=== PATIENT | female | born 1965 | race Caucasian/White ===

== ENCOUNTER 2024-08-27 16:36 | Emergency (ER) | payer BC, SELFPAY ==
[2024-08-27 16:38] VITALS: BP 202/103
--- NOTE | 2024-08-27 16:44 | ED.GENMED ---
ED Provider Triage
<Tasha Lewis PA-C - Last Filed: 08/27/24 16:49>
-
Patient seen by provider in Triage?: Seen in Triage
Attestation: A medical screening examination has been initiated by a qualified medical provider. Based on the assessment performed at this time, it has been determined that an emergent medical condition may exist and the patient has been informed
that further medical evaluation and possible additional diagnostic testing may be needed.
HPI: 58yoF here with n/v/d x 2 days. Has been able to keep down liquids but unable to tolerate solids. No fevers or abdominal pain. No sick contact, recent travel, or recent abx. Hx of Crohn's disease. Colonoscopy 2 years ago showed remission, no
longer on any medication for IBD.
GENERAL: Alert , in no apparent distress
EYE: No visual abnormalities.
NECK: Trachea midline
ENT: No visible abnormalities.
LUNGS: No acute respiratory distress
NEUROLOGICAL: Alert and oriented
SKIN: Skin intact. No visible changes.
MUSCULOSKELETAL: Moving extremities normally
PSYCH: Normal and appropriate interaction.
This is a medical evaluation conducted in person to initiate diagnostic evaluation and provide initial therapeutics. Please see further documentation by the treating clinician.
Abdominal labs, magnesium, COVID/flu testing ordered. ODT Zofran for nausea.
History of Present Illness
<Tasha Lewis PA-C - Last Filed: 08/27/24 16:49>
General
Chief Complaint: Abdominal Symptoms
Time Seen by Provider: 08/27/24 18:02
<Luis Thomas Jr., PA-C - Last Filed: 08/27/24 19:59>
General
Source: patient, spouse and family
Exam Limitations: none
Nursing documentation reviewed up to this point in time: agreed with
History of Present Illness
History of Present Illness:
58-year-old female past medical history of hypertension previous Crohn's, CKD presenting to the emergency department today with concerns of 2 days of nausea vomiting diarrhea. Multiple episodes per day over the past few days. Denies any chest pain
shortness of breath fevers.
Review of Systems
<Luis Thomas Jr., PA-C - Last Filed: 08/27/24 19:59>
Review of Systems
Allergies reviewed?: Yes
All Other Systems: ROS reviewed and negative except as documented in HPI and ROS
Phy Exam
<Luis Thomas Jr., PA-C - Last Filed: 08/27/24 19:59>
Physical Exam
Physical Exam:
GENERAL: Alert , in no apparent distress
EYE: pupils equal and reactive
NECK: Supple, no significant adenopathy.
ENT: o/p clr, mmm.
CARDIAC: Regular rate and rhythm .
LUNGS: Clear breath sounds bilaterally, no acute respiratory distress, no wheezes/rales/rhonchi
ABDOMEN: Soft, without focal tenderness, no r/g, no cvat
NEUROLOGICAL: Alert and oriented, no focal neuro deficits
SKIN: Warm and dry, skin intact.
MUSCULOSKELETAL: No edema, well perfused.
PSYCH: Normal and appropriate interaction.
Course
<Tasha Lewis PA-C - Last Filed: 08/27/24 16:49>
Orders/Labs/Results
Orders:
Orders
08/27/24 16:48
Ondansetron Orally Disint [Zofran Odt (Orally Disintegrating)] 4 mg PO NOW STA
08/27/24 16:52
COVID-19 Antigen Urgent
Source: Nasal Swab
Comprehensive Metabolic Panel Urgent
Lipase Urgent
Magnesium Urgent
Influenza A+B Rapid Molecular Urgent
MARA Source: Nasal Swab
Specimen Description:
08/27/24 18:18
Famotidine [Pepcid] 20 mg IV NOW STA
Ondansetron Injectable [Zofran] 4 mg IV NOW STA
08/27/24 18:19
0.9% Sodium Chloride 1000 ml [Nss] 1,000 ml IV BOLUS
08/27/24 18:26
Complete Blood Count/With Diff Urgent
Abnormal Lab Results
08/27/24 08/27/24
16:52 18:26
Absolute Neuts (auto) 6.9 H 10^3/uL
(1.4-6.5)
Absolute Monos (auto) 0.7 H 10^3/uL
(0.1-0.6)
Lymphocytes % 20.0 L %
(20.5-51.1)
BUN 25 H mg/dl
(7-17)
Creatinine 1.3 H mg/dL
(0.6-1.0)
Glucose 101 H mg/dl
(70-99)
AST 37 H U/L
(14-36)
Total Protein 8.6 H g/dl
(6.3-8.2)
08/27/24 18:26
08/27/24 16:52
Vital Signs
Initial and Last Documented VS:
Initial Vital Signs
Temp Pulse Resp BP Pulse Ox
97.6 F 80 16 202/103 98
08/27/24 16:38 08/27/24 16:38 08/27/24 16:38 08/27/24 16:38 08/27/24 16:38
Last Documented Vital Signs
Temp Pulse Resp BP Pulse Ox
97.6 F 53 18 153/84 99
08/27/24 16:38 08/27/24 19:34 08/27/24 19:34 08/27/24 19:19 08/27/24 19:34
<Luis Thomas Jr., PA-C - Last Filed: 08/27/24 19:59>
Orders/Labs/Results
Orders:
Orders
08/27/24 16:48
Ondansetron Orally Disint [Zofran Odt (Orally Disintegrating)] 4 mg PO NOW STA
08/27/24 16:52
COVID-19 Antigen Urgent
Source: Nasal Swab
Comprehensive Metabolic Panel Urgent
Lipase Urgent
Magnesium Urgent
Influenza A+B Rapid Molecular Urgent
MARA Source: Nasal Swab
Specimen Description:
08/27/24 18:18
Famotidine [Pepcid] 20 mg IV NOW STA
Ondansetron Injectable [Zofran] 4 mg IV NOW STA
08/27/24 18:19
0.9% Sodium Chloride 1000 ml [Nss] 1,000 ml IV BOLUS
08/27/24 18:26
Complete Blood Count/With Diff Urgent
Abnormal Lab Results
08/27/24 08/27/24
16:52 18:26
Absolute Neuts (auto) 6.9 H 10^3/uL
(1.4-6.5)
Absolute Monos (auto) 0.7 H 10^3/uL
(0.1-0.6)
Lymphocytes % 20.0 L %
(20.5-51.1)
BUN 25 H mg/dl
(7-17)
Creatinine 1.3 H mg/dL
(0.6-1.0)
Glucose 101 H mg/dl
(70-99)
AST 37 H U/L
(14-36)
Total Protein 8.6 H g/dl
(6.3-8.2)
08/27/24 18:26
08/27/24 16:52
Vital Signs
Initial and Last Documented VS:
Initial Vital Signs
Temp Pulse Resp BP Pulse Ox
97.6 F 80 16 202/103 98
08/27/24 16:38 08/27/24 16:38 08/27/24 16:38 08/27/24 16:38 08/27/24 16:38
Last Documented Vital Signs
Temp Pulse Resp BP Pulse Ox
97.6 F 53 18 153/84 99
08/27/24 16:38 08/27/24 19:34 08/27/24 19:34 08/27/24 19:19 08/27/24 19:34
<Luis Thomas Jr., PA-C - Last Filed: 08/27/24 19:59>
MDM/Problems Addressed
MDM/Problems Addressed:
58-year-old female presenting to the emergency department with concerns of nausea vomiting diarrhea over the past 2 days. Slightly improving but not completely gone. Still with ongoing diarrhea no significant vomiting today but has not been able
to eat. Initial blood pressure elevated otherwise vital signs are normal. Labs unremarkable. Patient does have a history of CKD creatinine consistent with this. Otherwise patient given medications here with significant improvement of symptoms.
Blood pressure significantly improving as well. Otherwise stable for outpatient treatment as patient likely has a stomach bug. Return precautions given.
<Luis Thomas Jr., PA-C - Last Filed: 08/27/24 19:59>
*Critical Care Note
Total Time (30-74mins, 75-104mins- exclusive of procedures): Not Applicable
ED Attending Note
<Tasha Lewis PA-C - Last Filed: 08/27/24 16:49>
-
Portions of this chart may have been created with voice recognition software.� Occasional wrong word or��sound alike� substitutions may have occurred due to the inherent limitations of voice recognition software.
Discharge Plan
Departure
Patient Disposition: Home (Routine Discharge)
Date of Disposition: 08/27/24
Time of Disposition: 19:56
Patient with high blood pressure during this ER visit?: No
Condition: Good
Covid-19: Not Applicable
Discharge Problem:
Gastroenteritis
Instructions: Nausea and Vomiting, Adult (DC)
Prescriptions:
New
ondansetron 4 mg tablet,disintegrating
4 mg PO Q6H PRN (Reason: nausea and vomiting) Qty: 7 0RF
Referrals:
Taz Thomas MD [Family Provider] -
Activity Restrictions/Additional Instructions:
You came to the emergency department today with concerns of symptoms consistent with likely gastroenteritis. Please take the prescribed occasions and stay hydrated over the next few days. Return to the emergency department any worsening, new or
concerning symptoms.
Interventions
Interventions:
*Risk Screen - Suicide Last Done: 08/27/24 16:38
*General Assessment Last Done: 08/27/24 16:38
*Neglect/Abuse Screening Last Done: 08/27/24 16:38
*ED COVID-19 Vaccine History Last Done: 08/27/24 16:38
PX-Hqggnu-Eahvreawke Assessment Last Done: 08/27/24 18:37
Discharge Date and Time
Print Language: INDONESIAN
[2024-08-27 17:20] LABS: ALT (SGPT) 34 U/L (0-35); AST (SGOT) 37 U/L (14-36); Albumin 4.9 g/dl (3.5-5.0); Alkaline Phosphatase 103 U/L (38-126); Blood Urea Nitrogen 25 mg/dl (7-17); Calcium 9.6 mg/dl (8.4-10.2); Carbon Dioxide 27 mmol/L (22-30); Chloride 99 mmol/L (98-107); Glucose 101 mg/dl (70-99); Potassium 4.2 mmol/L (3.5-5.1); Sodium 140 mmol/L (135-145); Total Bilirubin 0.9 mg/dl (0.2-1.3); Total Protein 8.6 g/dl (6.3-8.2); eGFR 47.96
[2024-08-27 17:21] LABS: Lipase 151 U/L (23-300)
[2024-08-27 17:38] LABS: COVID-19 Antigen Negative (Negative)
[2024-08-27] MEDS: PEPCID 20 MG IV (18:30)
[2024-08-27] MEDS: ZOFRAN 4 MG IV (18:30)
[2024-08-27] MEDS: NSS 1000 IV (18:31)
[2024-08-27 18:33] LABS: % Basophils 0.4 % (0-2); % Eosinophils 0.2 % (0-6); % Immature Granulocytes 0.3 % (0-0.5); % Monocytes 6.9 % (1.7-9.3); % Neutrophils 72.2 % (42.2-75.2); Absolute Lymphocytes 1.9 10^3/uL (1.2-3.4); Absolute Monocytes 0.7 10^3/uL (0.1-0.6); Absolute Neutrophils 6.9 10^3/uL (1.4-6.5); Hematocrit 44.4 % (37.0-47.0); Hemoglobin 14.8 g/dL (12.0-16.0); Mean Corp Hgb Conc. 33.3 g/dL (33.0-37.0); Mean Corpuscular Hgb 30.3 pg (27.0-31.0); Mean Corpuscular Volume 90.8 fL (81.0-99.0); Nucleated Red Blood Cells % 0 %; Platelet Count 181 10^3/uL (130-400); Red Blood Cell Count 4.89 10^6/uL (4.20-5.40); White Blood Cell Count 9.6 10^3/uL (4.8-10.8)
[2024-08-27 18:38] VITALS: BP 179/92
[2024-08-27 19:19] VITALS: BP 153/84
[2024-08-27 20:00] VITALS: BP 163/98
[2024-08-27] MEDS: ZOFRAN ODT (ORALLY DISINTEGRATING) 4 MG PO (20:11)
== END 2024-08-27 20:19 | disposition home or self-care (01) ==
LOC: EMR 16:36
PROVIDERS: Physician Assistant; EMERGENCY PHYSICIAN Student in an Organized Health Care Education/Training Program; FAMILY PHYSICIAN Internal Medicine Geriatric Medicine
DX: K52.9 Noninfective gastroenteritis and colitis, unspecified (principal); N18.9 Chronic kidney disease, unspecified; Z11.52 Encounter for screening for COVID-19
CPT/HCPCS: 99284; 96374; 96375; 80053; 83690; 83735; 85025; 87502; 87811